=== PATIENT | female | born 1980 | race Hispanic/Latino ===

== ENCOUNTER 2022-03-06 11:38 | Outpatient (CLI) | payer OTHER ==
--- NOTE | 2022-03-06 14:17 | XRay Report ---
Cervical spine 4 views INDICATION: Disability evaluation IMPRESSION: Visualized alignment appears normal. Cervicothoracic junction is not well seen. Facets ar e well aligned throughout. Signer Name: Tae Connolly MD Signed: 03/06/2022 2:13 PM Workstation Name: [id number]
--- NOTE | 2022-03-06 14:21 | XRay Report ---
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 The medial compartment s. No soft tissue abnormality is seen. No acute fracture. Signer Name: Tae Connolly MD Signed: 03/06/2022 2:16 PM Workstation Name: [id number]
--- NOTE | 2022-03-06 14:36 | XRay Report ---
RIGHT WRIST 2 VIEW(S) INDICATION / CLINICAL INFORMATION: Z02.71 ENCOUNTER FOR DISABILITY COMPARISON: None available. FINDINGS: BONES / JOINT(S): No acute fracture or subluxation. No significant arthritis. SOFT TISSUES: No significant abnormality. ADDITIONAL FINDINGS: None. Signer Name: Arsenio Talley MD Signed: 03/06/2022 2:32 PM Workstation Name: [id number]
--- NOTE | 2022-03-06 14:37 | XRay Report ---
RIGHT HAND 2 VIEW(S) INDICATION / CLINICAL INFORMATION: Z02.71 ENCOUNTER FOR DISABILITY COMPARISON: None available. FINDINGS: BONES / JOINT(S): No acute fracture or subluxation. No significant arthritis. SOFT TISSUES: No significant abnormality. ADDITIONAL FINDINGS: None. Signer Name: Arsenio Talley MD Signed: 03/06/2022 2:33 PM Workstation Name: [id number]
== END 2022-03-06 11:39 | disposition home or self-care (01) ==
LOC: XRAY 11:38
PROVIDERS: ATTEND Internal Medicine
DX: M17.0 Bilateral primary osteoarthritis of knee (principal)
CPT/HCPCS: 72040; 73565

== ENCOUNTER 2022-07-05 17:15 | Emergency (ER) | payer BC, OTHER ==
[2022-07-06 04:09] LABS: Color,Urine Yellow (Yellow)
[2022-07-06 04:12] LABS: Mucus,Urine FEW /HPF
[2022-07-06] MEDS ORDERED: METOCLOPRAMIDE 10 MG/2 ML INJ IV ONE (04:19)
[2022-07-06] MEDS ORDERED: ALBUTEROL 2.5 MG/3 ML NEBU IH ONE (04:19)
[2022-07-06] MEDS ORDERED: MORPHINE 4 MG/1 ML INJ IV ONE (04:19)
--- NOTE | 2022-07-06 04:32 | Emergency Department Report ---
ED Abdominal Pain HPI - General Chief Complaint: Abdominal Pain Stated Complaint: HBP/ABD PAIN Time Seen by Provider: 07/06/22 03:38 Source: patient Mode of arrival: Ambulatory Limitations: No Limitations - History of Present Illness Initial Comments: Patient is a 42-year-old female presenting to the emergency department complaint of abdominal pain. Patient states that she was recently admitted to the hospital until she had sepsis as well as acute kidney injury. Patient reports that she did not feel ready to be discharged. She states that she he is having any trouble breathing was on oxygen and was hypertensive upon discharge. Patient states that she has had felt sick for the past 3 weeks. She also notes she feels weak and lethargic. She also states she has belching and abnormal taste in her mouth. She reports that she sees a GI doctor and has scheduled for endoscopy in the next few weeks. Severity scale (0 -10): 8 - Related Data Allergies Allergy/AdvReac Type Severity Reaction Status Date / Time No Known Allergies Allergy Verified 07/05/22 17:47 ED Review of Systems ROS: Stated complaint: HBP/ABD PAIN Other details as noted in HPI Constitutional: denies: chills, fever Eyes: denies: eye pain, eye discharge, vision change ENT: denies: ear pain, throat pain Respiratory: denies: cough, shortness of breath, wheezing Cardiovascular: denies: chest pain, palpitations Endocrine: no symptoms reported Gastrointestinal: abdominal pain, nausea, vomiting. denies: diarrhea Genitourinary: denies: urgency, dysuria, discharge Musculoskeletal: denies: back pain, joint swelling, arthralgia Skin: denies: rash, lesions Neurological: denies: headache, weakness, paresthesias Psychiatric: denies: anxiety, depression Hematological/Lymphatic: denies: easy bleeding, easy bruising ED Past Medical Hx - Past Medical History Previous Medical History?: Yes Hx Hypertension: Yes - Surgical History Past Surgical History?: No - Social History Smoking Status: Never Smoker ED Physical Exam - General Limitations: No Limitations General appearance: alert, in no apparent distress - Head Head exam: Present: atraumatic, normocephalic - Eye Eye exam: Present: normal appearance - ENT ENT exam: Present: mucous membranes moist - Neck Neck exam: Present: normal inspection - Respiratory Respiratory exam: Present: normal lung sounds bilaterally. Absent: respiratory distress - Cardiovascular Cardiovascular Exam: Present: regular rate, normal rhythm. Absent: systolic murmur, diastolic murmur, rubs, gallop - GI/Abdominal GI/Abdominal exam: Present: soft, tenderness, normal bowel sounds - Extremities Exam Extremities exam: Present: normal inspection - Back Exam Back exam: Present: normal inspection - Neurological Exam Neurological exam: Present: alert, oriented X3 - Psychiatric Psychiatric exam: Present: normal affect, normal mood - Skin Skin exam: Present: warm, dry, intact, normal color. Absent: rash ED Course Vital Signs 07/05/22 07/05/22 07/06/22 17:42 23:42 03:59 Temperature 97.8 F 98.3 F 97.0 F L Pulse Rate 105 H 88 86 Respiratory 16 18 18 Rate Blood Pressure 129/85 167/97 140/97 [Right] O2 Sat by Pulse 95 97 98 Oximetry - Reevaluation(s) Reevaluation #1: 07/06/22 05:47 She has improved on reassessment. ED Medical Decision Making - Lab Data Result diagrams: 07/06/22 04:16 07/06/22 04:16 - EKG Data -: EKG Interpreted by [facility] EKG shows normal: sinus rhythm Rate: normal - EKG Data Interpretation: nonspecific ST-T wave william - Radiology Data Radiology results: report reviewed, image reviewed - Medical Decision Making 42-year-old female here with complaints of abdominal pain in setting of recent hospitalization for sepsis and KJ. Plan for basic labs pain control CT scan scan of the abdomen pelvis and reassessment. Critical care attestation.: If time is entered above; I have spent that time in minutes in the direct care of this critically ill patient, excluding procedure time. ED Disposition Clinical Impression: Abdominal pain Condition: Stable Instructions: Abdominal Pain (ED), Abdominal Pain, Adult, [id number] Referrals: HEAVEN CHAPARRO MD [Staff Physician] - 3-5 Days
[2022-07-06 04:58] LABS: Basophils # (Auto) 0.2 K/mm3 (0.0-0.1); Basophils % (Auto) 1.6 % (0.0-1.8); Eosinophils # (Auto) 0.4 K/mm3 (0.0-0.4); Eosinophils % (Auto) 2.8 % (0.0-4.3); Hematocrit 47.3 % (30.3-42.9); Hemoglobin 15.5 gm/dl (10.1-14.3); Lymphocytes # (Auto) 2.9 K/mm3 (1.2-5.4); Lymphocytes % (Auto) 23.1 % (13.4-35.0); Mean Corpuscular HGB Conc 33 % (30-34); Mean Corpuscular Volume 89 fl (79-97); Monocytes % (Auto) 7.7 % (0.0-7.3); Platelet Count 245 K/mm3 (140-440); Red Blood Count 5.33 M/mm3 (3.65-5.03); Red Cell Distribution Width 14.8 % (13.2-15.2)
[2022-07-06 05:20] LABS: Alanine Aminotransferase 17 units/L (7-56); Albumin 4.2 g/dL (3.9-5); Blood Urea Nitrogen 9 mg/dL (7-17); Calcium 9.4 mg/dL (8.4-10.2); Hemolysis Index 13
[2022-07-06 05:24] LABS: BUN/Creatinine Ratio 15
[2022-07-06 06:54] VITALS: BP 153/83
--- NOTE | 2022-07-06 07:52 | Cat Scan Report ---
CT ABDOMEN AND PELVIS WITH CONTRAST INDICATION / CLINICAL INFORMATION: mid abdominal pain; recent admission for sepsis;. TECHNIQUE: Axial CT images were obtained through the abdomen and pelvis after 100 cc Omnipaque [address] scans at this location are performed using CT dose reduction for ALARA by means of automated exposure control. COMPARISON: None available. FINDINGS: LOWER CHEST: No significant abnormality of the imaged chest. LIVER: No focal lesion. No acute findings. GALLBLADDER / BILE DUCTS: Cholecystectomy. Biliary ducts grossly unremarkable. SPLEEN: No significant abnormality. PANCREAS: No significant abnormality. ADRENALS: No significant abnormality. KIDNEYS/URETERS: No stones or hydronephrosis. No solid renal lesion. STOMACH / DUODENUM / SMALL BOWEL: The stomach, duodenum, and small bowel demonstrate no significant a bnormality. No specific abnormality of the mesentery demonstrated. COLON: No significant abnormality. APPENDIX: Absent PERITONEUM: No free air or free fluid are present within the abdomen or pelvis. LYMPH NODES: No significant adenopathy. AORTA / ARTERIES: Mild atherosclerotic calcification without acute abnormality. IVC / VEINS: No significant abnormality. URINARY BLADDER: No significant abnormality. REPRODUCTIVE ORGANS: No significant abnormality. SKELETAL SYSTEM: Bilateral SI joint sclerotic changes. No significant ankylosis. Sclerotic appearance of T12-L1 and to a greater degree T9-T11. Remote partially healed sternal fracture demonstrated. ADDITIONAL ABDOMINAL/PELVIC FINDINGS: None. IMPRESSION: 1. Nonspecific regions of sclerotic bone involving SI joints without ankylosis and multiple vertebral bodies. Appearance is not typical polyostotic Paget's. Exact etiology is uncertain. 2. No acute process within the abdomen or pelvis. Signer Name: Mrerill Mcrae II, MD Signed: 07/06/2022 7:48 AM Workstation Name: [id number]
--- NOTE | 2022-07-06 10:40 | Electrocardiograph Report ---
[facility] Test Date: 2022-07-06 Test Time: 04:12:11 Pat Name: SIVAKUMAR RUDOLPH Department: Room: Gender: F [employer]: : 1980 Requested By: LAURA FU Order Number: [id number] Reading MD: Dominic Odom Measurements Intervals [place] Rate: 83 P: 40 NM: 138 QRS: 39 QRSD: 87 T: 124 QT: 336 QTc: 395 Interpretive Statements Sinus rhythm Probable left atrial enlargement Nonspecific T abnormalities, lateral leads No previous ECG available for comparison Electronically Signed On 07-06-2022 10:40:32 EDT by Dominic Odom
== END 2022-07-06 09:19 | disposition home or self-care (01) ==
LOC: ED 17:15
DX: R10.9 Unspecified abdominal pain (principal); I10 Essential (primary) hypertension
CPT/HCPCS: 36415; 74177; 80053; 81001; 82140; 83690; 84484; 84703; 85025; 87040; 93005; 96374; 96375; 99284; J2270; J2765; Q9967